=== PATIENT | male | born 1970 | race Two or more races ===

== ENCOUNTER 2022-09-05 08:41 | Inpatient (IN) | payer MEDICAID ==
[~2022-09-05] VITALS: Ht 165.1 cm; Wt 79.1 kg
[2022-09-05 09:16] LABS: Hemoglobin 13.7 g/dL (13.5-17.5); Mean Corpuscular Hgb Conc. 36.1 g/dL (32.0-36.0); Red Blood Cells 3.86 10^6/uL (4.5-5.90); White Blood Cell 23.4 10^3/uL (4.4-10.8)
[2022-09-05 09:18] LABS: Mean Corpuscular Hemoglobin 35.5 pg (28.0-32.0); Mean Corpuscular Volume 98.4 fL (80.0-100.0); Red Cell Distribution Width 15.3 % (11.8-14.3)
[2022-09-05 09:32] LABS: Albumin 2.4 g/dL (3.4-5.0); Calcium 7.4 mg/dL (8.5-10.1)
[2022-09-05 09:33] LABS: Basophils % (manual) 0 (0.0-2.0); Blast Cells 0; Eosinophils % (manual) 0 (0-7); Metamyelocytes % 0; Myelocytes % 0; Promyelocytes % 0; Reactive Lymphocytes 0
[2022-09-05 09:38] LABS: Bilirubin, Total 2.2 mg/dL (0.2-1.0); Total Protein 8.3 g/dL (6.4-8.2)
[2022-09-05 09:42] LABS: Potassium 2.9 mmol/L (3.5-5.1)
[2022-09-05] MEDS ORDERED: MAALOX PLUS or MAALOX 30 ML PO ONE (09:45)
[2022-09-05] MEDS ORDERED: LACTATED RINGER'S 1,000 ML IV ONE (09:45)
[2022-09-05] MEDS ORDERED: FAMOTIDINE (10MG/ML) 2ML VL IV ONE (09:45)
[2022-09-05] MEDS ORDERED: ONDANSETRON HCL 4 MG/2 ML VIAL IV ONE (09:45)
[2022-09-05] MEDS ORDERED: DICYCLOMINE HCL 10 MG CAP PO ONE (09:45)
[2022-09-05] MEDS ORDERED: BISMUTH SUBSALICYLATE 262MG/15ml ORAL Susp PO ONE (09:45)
[2022-09-05] MEDS ORDERED: SODIUM CHLORIDE 0.9% 1,000 ML IV ONE ×2 (10:00→11:45)
[2022-09-05] MEDS ORDERED: SOD CHL 0.9%/ KCL 40MEQ 1,000 ML IV ONE (10:00)
[2022-09-05] MEDS ORDERED: POTASSIUM CHL 20 Meq TABLET PO ONE (10:00)
[2022-09-05 10:01] LABS: Band Neutrophils % (manual) 2; Lymphocytes % (manual) 4 (10.0-50.0); Monocytes % (manual) 12 (0-12)
[2022-09-05 10:22] LABS: Urine Bacteria FEW /hpf (None Seen); Urine Blood 1+ /uL (Negative); Urine Mucus FEW (None Seen); Urine Specific Gravity 1.012 (1.001-1.035); Urine WBC 448 /hpf (0 - 3); Urine WBC Clumps PRESENT /hpf (None Seen)
[2022-09-05] MEDS ORDERED: VANCOMYCIN HCL 125MG/5ML ORAL SOL PO ONE (10:45)
[2022-09-05] MEDS ORDERED: HYDROcodone-ACET 5/325MG TAB PO ONE (11:00)
[2022-09-05] MEDS ORDERED: MAGNESIUM SULFATE 1GM/100ML 100 ML IV ONE (11:00)
[2022-09-05] MEDS ORDERED: cefTRIAXone 1GM/50ML D5W 50 ML IV ONE (11:15)
[2022-09-05] MEDS ORDERED: MORPHINE SULFATE INJ 2 MG/ml SYRG IV PRN (11:45)
[2022-09-05] MEDS ORDERED: ONDANSETRON HCL 4 MG/2 ML VIAL IV PRN (11:45)
[2022-09-05] MEDS ORDERED: ACETAMINOPHEN 325 MG TAB PO PRN (11:45)
[2022-09-05] MEDS: SODIUM CHLORIDE 0.9% 1,000 ML IV SCH ×2 (16:51→20:17)
[2022-09-05] MEDS: VANCOMYCIN HCL 125MG/5ML ORAL SOL PO SCH ×3 (17:22→22:00)
[2022-09-06] MEDS: SODIUM CHLORIDE 0.9% 1,000 ML IV SCH ×4 (04:25→21:04)
[2022-09-06 06:35] LABS: Eosinophils # (auto) 0 10 ^3/uL (0-0.8); Hemoglobin 12.8 g/dL (13.5-17.5); Lymphocytes # (auto) 0.9 10 ^3/uL (0.4-5.4); Monocytes # (auto) 1.8 10 ^3/uL (0-1.3); Neutrophils # (auto) 17.9 10 ^3/uL (1.6-8.6); White Blood Cell 20.6 10^3/uL (4.4-10.8)
[2022-09-06 06:38] LABS: Basophils # (auto) 0.1 10 ^3/uL (0-0.2); Basophils % (auto) 0.3 % (0.0-2.0); Hematocrit 35.9 % (41.0-53.0); Lymphocytes % (auto) 4.3 % (10.0-50.0); Mean Corpuscular Hemoglobin 35.7 pg (28.0-32.0); Mean Corpuscular Hgb Conc. 35.7 g/dL (32.0-36.0); Mean Corpuscular Volume 99.8 fL (80.0-100.0); Monocytes % (auto) 8.8 % (0.0-12.0); Neutrophils % (auto) 86.6 % (37.0-80.0); Red Cell Distribution Width 15.3 % (11.8-14.3)
[2022-09-06 06:55] LABS: Albumin 2.1 g/dL (3.4-5.0); Calcium 7.1 mg/dL (8.5-10.1); Potassium 3.2 mmol/L (3.5-5.1)
[2022-09-06] MEDS: VANCOMYCIN HCL 125MG/5ML ORAL SOL PO SCH ×4 (06:59→21:04)
[2022-09-06 07:00] LABS: BUN/Creatinine Ratio 14.3 (10.0-20.0); Bilirubin, Total 1.4 mg/dL (0.2-1.0); Total Protein 7.6 g/dL (6.4-8.2)
[2022-09-06] MEDS: cefTRIAXone 1GM/50ML D5W 50 ML IV SCH (10:18)
[2022-09-06] MEDS: ENOXAPARIN SOD 40 MG/0.4 ML SYRINGE SC SCH (10:46)
[2022-09-06] MEDS: PANTOPRAZOLE 40 MG/10 ML VIAL INJ IV SCH (11:27)
[2022-09-06 17:00] VITALS: BP 124/75
[2022-09-06] MEDS ORDERED: metroNIDAZOLE 500MG/100ML 100 ML IV ONE (18:15)
[2022-09-06 21:55] VITALS: BP 117/69
[2022-09-06 23:54] VITALS: BP 132/74
[2022-09-07] MEDS: metroNIDAZOLE 500MG/100ML 100 ML IV SCH ×3 (03:19→18:29)
[2022-09-07 04:48] VITALS: BP 110/73
[2022-09-07] MEDS: SODIUM CHLORIDE 0.9% 1,000 ML IV SCH (05:58)
[2022-09-07] MEDS: VANCOMYCIN HCL 125MG/5ML ORAL SOL PO SCH ×3 (05:58→18:29)
[2022-09-07 06:28] LABS: Basophils # (auto) 0.1 10 ^3/uL (0-0.2); Basophils % (auto) 0.5 % (0.0-2.0); Eosinophils # (auto) 0 10 ^3/uL (0-0.8); Eosinophils % (auto) 0.1 % (0.0-7.0); Hematocrit 32.4 % (41.0-53.0); Hemoglobin 11.3 g/dL (13.5-17.5); Lymphocytes # (auto) 0.8 10 ^3/uL (0.4-5.4); Lymphocytes % (auto) 5.3 % (10.0-50.0); Mean Corpuscular Hemoglobin 34.5 pg (28.0-32.0); Mean Corpuscular Hgb Conc. 34.8 g/dL (32.0-36.0); Mean Corpuscular Volume 99.3 fL (80.0-100.0); Monocytes % (auto) 12.9 % (0.0-12.0); Neutrophils # (auto) 12.6 10 ^3/uL (1.6-8.6); Neutrophils % (auto) 81.2 % (37.0-80.0); Red Blood Cells 3.26 10^6/uL (4.5-5.90); Red Cell Distribution Width 15.6 % (11.8-14.3); White Blood Cell 15.6 10^3/uL (4.4-10.8)
[2022-09-07 06:50] LABS: BUN/Creatinine Ratio 13.9 (10.0-20.0); Calcium 7.4 mg/dL (8.5-10.1)
[2022-09-07 07:54] LABS: Potassium 2.6 mmol/L (3.5-5.1)
[2022-09-07 08:00] VITALS: BP 100/60
[2022-09-07] MEDS: cefTRIAXone 1GM/50ML D5W 50 ML IV SCH (09:42)
[2022-09-07] MEDS ORDERED: POTASSIUM EFFERVESENT TAB 25 MEQ GT ONE (10:15)
[2022-09-07] MEDS: POTASSIUM CHL 20MEQ/100ML 100 ML IV SCH ×4 (10:45→15:33)
[2022-09-07] MEDS: ENOXAPARIN SOD 40 MG/0.4 ML SYRINGE SC SCH (10:46)
[2022-09-07] MEDS: PANTOPRAZOLE 40 MG/10 ML VIAL INJ IV SCH (10:46)
[2022-09-07 12:00] VITALS: BP 107/64
[2022-09-07] MEDS: SODIUM BICARBONATE 50ML VIAL 50 ML in SOD CHL 0.45% 1,000 ML IV SCH ×3 (13:19→21:50)
[2022-09-07 16:00] VITALS: BP 116/77
[2022-09-07 22:00] VITALS: BP 122/79
[2022-09-08] MEDS: metroNIDAZOLE 500MG/100ML 100 ML IV SCH ×3 (01:47→17:55)
[2022-09-08 05:00] VITALS: BP 140/82
[2022-09-08 06:16] LABS: Basophils # (auto) 0 10 ^3/uL (0-0.2); Basophils % (auto) 0.3 % (0.0-2.0); Eosinophils # (auto) 0.1 10 ^3/uL (0-0.8); Eosinophils % (auto) 0.4 % (0.0-7.0); Hematocrit 35.4 % (41.0-53.0); Hemoglobin 12.1 g/dL (13.5-17.5); Lymphocytes # (auto) 1.1 10 ^3/uL (0.4-5.4); Lymphocytes % (auto) 8.3 % (10.0-50.0); Mean Corpuscular Hemoglobin 34.5 pg (28.0-32.0); Mean Corpuscular Hgb Conc. 34.2 g/dL (32.0-36.0); Mean Corpuscular Volume 100.9 fL (80.0-100.0); Monocytes # (auto) 1.9 10 ^3/uL (0-1.3); Monocytes % (auto) 14.2 % (0.0-12.0); Neutrophils # (auto) 10.5 10 ^3/uL (1.6-8.6); Neutrophils % (auto) 76.8 % (37.0-80.0); Red Blood Cells 3.51 10^6/uL (4.5-5.90); Red Cell Distribution Width 16.1 % (11.8-14.3); White Blood Cell 13.7 10^3/uL (4.4-10.8)
[2022-09-08] MEDS: SODIUM BICARBONATE 50ML VIAL 50 ML in SOD CHL 0.45% 1,000 ML IV SCH ×2 (06:17→21:15)
[2022-09-08 06:29] LABS: BUN/Creatinine Ratio 9.3 (10.0-20.0); Calcium 7.6 mg/dL (8.5-10.1); Potassium 3.3 mmol/L (3.5-5.1)
[2022-09-08 09:00] VITALS: BP 132/87
[2022-09-08] MEDS: PANTOPRAZOLE 40 MG/10 ML VIAL INJ IV SCH (09:02)
[2022-09-08] MEDS: cefTRIAXone 1GM/50ML D5W 50 ML IV SCH (09:03)
[2022-09-08] MEDS: ENOXAPARIN SOD 40 MG/0.4 ML SYRINGE SC SCH (09:03)
[2022-09-08] MEDS ORDERED: POTASSIUM EFFERVESENT TAB 25 MEQ GT ONE (09:30)
[2022-09-08] MEDS ORDERED: POTASSIUM EFFERVESENT TAB 25 MEQ PO ONE (12:15)
[2022-09-08 13:00] VITALS: BP 137/90
[2022-09-08] MEDS: MAGNESIUM SULFATE 1GM/100ML 100 ML IV SCH ×2 (15:10→16:33)
[2022-09-08 16:42] VITALS: BP 140/84
[2022-09-08 20:00] VITALS: BP 131/86
[2022-09-08 22:00] VITALS: BP 131/86
[2022-09-09] MEDS: metroNIDAZOLE 500MG/100ML 100 ML IV SCH ×2 (01:54→12:01)
[2022-09-09 05:13] VITALS: BP 124/86
[2022-09-09] MEDS: SODIUM BICARBONATE 50ML VIAL 50 ML in SOD CHL 0.45% 1,000 ML IV SCH ×3 (06:00→23:30)
[2022-09-09 06:53] LABS: Basophils # (auto) 0.1 10 ^3/uL (0-0.2); Basophils % (auto) 0.6 % (0.0-2.0); Eosinophils # (auto) 0.1 10 ^3/uL (0-0.8); Eosinophils % (auto) 0.7 % (0.0-7.0); Hematocrit 32.8 % (41.0-53.0); Hemoglobin 11.3 g/dL (13.5-17.5); Lymphocytes # (auto) 1.1 10 ^3/uL (0.4-5.4); Lymphocytes % (auto) 9.1 % (10.0-50.0); Mean Corpuscular Hemoglobin 34.4 pg (28.0-32.0); Mean Corpuscular Hgb Conc. 34.3 g/dL (32.0-36.0); Mean Corpuscular Volume 100.1 fL (80.0-100.0); Monocytes % (auto) 16.5 % (0.0-12.0); Neutrophils # (auto) 8.9 10 ^3/uL (1.6-8.6); Neutrophils % (auto) 73.1 % (37.0-80.0); Red Blood Cells 3.28 10^6/uL (4.5-5.90); White Blood Cell 12.2 10^3/uL (4.4-10.8)
[2022-09-09 07:06] LABS: BUN/Creatinine Ratio 5.1 (10.0-20.0); Calcium 7.3 mg/dL (8.5-10.1); Potassium 3.9 mmol/L (3.5-5.1)
[2022-09-09 07:12] LABS: Phosphorus 0.8 mg/dL (2.5-4.90)
[2022-09-09 08:30] VITALS: BP 119/82
[2022-09-09] MEDS: cefTRIAXone 1GM/50ML D5W 50 ML IV SCH (09:09)
[2022-09-09] MEDS ORDERED: METR500T PO (09:45)
[2022-09-09] MEDS ORDERED: POTASSIUM PHOSPHATE 44 MEQ in D5W 5% 250 ML IV ONE (10:45)
[2022-09-09] MEDS: PANTOPRAZOLE 40 MG/10 ML VIAL INJ IV SCH (12:01)
[2022-09-09] MEDS: ENOXAPARIN SOD 40 MG/0.4 ML SYRINGE SC SCH (12:01)
[2022-09-09 13:24] VITALS: BP 128/90
[2022-09-09 16:54] VITALS: BP 124/84
[2022-09-09 22:00] VITALS: BP 117/61
[2022-09-10] MEDS: metroNIDAZOLE 500MG/100ML 100 ML IV SCH ×3 (02:00→10:00)
[2022-09-10 05:00] VITALS: BP 136/87
[2022-09-10 06:45] LABS: Magnesium 1.9 mg/dL (1.6-2.6); Phosphorus 2.5 mg/dL (2.5-4.90)
[2022-09-10 08:46] VITALS: BP 126/87
[2022-09-10] MEDS: cefTRIAXone 1GM/50ML D5W 50 ML IV SCH (09:00)
[2022-09-10] MEDS: ENOXAPARIN SOD 40 MG/0.4 ML SYRINGE SC SCH (10:00)
[2022-09-10] MEDS: PANTOPRAZOLE 40 MG/10 ML VIAL INJ IV SCH (10:00)
[2022-09-10 10:17] VITALS: BP 126/87
[2022-09-10] MEDS: SODIUM BICARBONATE 50ML VIAL 50 ML in SOD CHL 0.45% 1,000 ML IV SCH (11:43)
== END 2022-09-10 12:51 | disposition home or self-care (01) | DRG 249 ==
LOC: ER 08:41 → OVERFLOW 11:43 → CENTRAL 09-06 14:13
PROVIDERS: ADMIT Nurse Practitioner Family; ATTEND Internal Medicine Pulmonary Disease
DX: K52.9 Noninfective gastroenteritis and colitis, unspecified (principal); N17.0 Acute kidney failure with tubular necrosis; E87.20 Acidosis, unspecified; D69.6 Thrombocytopenia, unspecified; E83.39 Other disorders of phosphorus metabolism; E86.0 Dehydration; N30.00 Acute cystitis without hematuria; B96.20 Unspecified Escherichia coli [E. coli] as the cause of diseases classified elsewhere; E83.42 Hypomagnesemia; E87.6 Hypokalemia; N18.9 Chronic kidney disease, unspecified; Z90.49 Acquired absence of other specified parts of digestive tract; Z82.49 Family history of ischemic heart disease and other diseases of the circulatory system; Z83.3 Family history of diabetes mellitus; Z82.3 Family history of stroke
CPT/HCPCS: 36415; 74176; 76705; 80048; 80053; 81001; 83690; 83735; 83986; 84100; 85007; 85025; 85027; 85048; 87045; 87086; 87088; 87177; 87186; 87427; 87493; 96365; 96366; 96367; 96372; 96375; C9113; G0378; J0696; J2405; J3480; J3490; J7060

== ENCOUNTER 2023-03-05 15:29 | Emergency (ER) | payer MEDICAID ==
[~2023-03-05] VITALS: Ht 170.2 cm; Wt 78.0 kg
[~2023-03-05 15:29] MED LIST: METR500T PO
[2023-03-05 16:09] VITALS: BP 133/89; PULSE 105; RESP 18; TEMP 98.6; O2SAT 96
[2023-03-05 16:24] LABS: Urine Bacteria MOD /hpf (None Seen); Urine Blood 2+ /uL (Negative); Urine Clarity HAZY (Clear); Urine Color Orange (Yellow); Urine Hyaline Cast FEW /lpf (0 - 2); Urine Mucus FEW (None Seen); Urine Protein, UAD 1+ (Negative); Urine Specific Gravity 1.018 (1.001-1.035); Urine Urobilinogen >12.0 mg/dL (Negative); Urine WBC 358 /hpf (0 - 3); Urine WBC Clumps PRESENT /hpf (None Seen); Urine pH 6.5 (5.0-8.0)
[2023-03-05] MEDS ORDERED: cefTRIAXone SOD 1,000 MG VL IM ONE (16:30)
[2023-03-05] MEDS ORDERED: ACET-1080 PO (16:36)
[2023-03-05] MEDS ORDERED: CIPR-173 PO (16:36)
== END 2023-03-05 16:46 | disposition home or self-care (01) ==
LOC: ER 15:29
DX: N39.0 Urinary tract infection, site not specified (principal); Z90.49 Acquired absence of other specified parts of digestive tract; Z79.2 Long term (current) use of antibiotics; Z79.899 Other long term (current) drug therapy
CPT/HCPCS: 81001; 96372; 99283; J0696

== ENCOUNTER 2023-03-22 09:13 | Emergency (ER) | payer MEDICAID ==
[~2023-03-22] VITALS: Ht 167.6 cm; Wt 74.9 kg
[~2023-03-22 09:13] MED LIST changes: +ACET-1080 PO; +CIPR-173 PO
[2023-03-22 10:14] LABS: Urine Bacteria FEW /hpf (None Seen); Urine Blood Negative /uL (Negative); Urine Clarity Clear (Clear); Urine Hyaline Cast FEW /lpf (0 - 2); Urine Mucus FEW (None Seen); Urine Protein, UAD 1+ (Negative); Urine Specific Gravity 1.026 (1.001-1.035); Urine WBC 5 /hpf (0 - 3)
[2023-03-22 10:20] LABS: Urine Color BROWN (Yellow)
[2023-03-22] MEDS ORDERED: cefTRIAXone SOD 1,000 MG VL IM ONE (11:15)
[2023-03-22] MEDS ORDERED: MELO7.5T7 PO (11:18)
[2023-03-22] MEDS ORDERED: CEFP100T6 PO (11:18)
[2023-03-22] MEDS ORDERED: ACET500T58 PO (11:18)
[2023-03-22 11:20] VITALS: PULSE 89; RESP 16; O2SAT 100
[2023-03-22] MEDS ORDERED: KETOROLAC TROMETH 30 MG/ML 1ML VIAL IM ONE (11:45)
[2023-03-22 12:26] VITALS: BP 116/79; PULSE 85; RESP 16; TEMP 98.3; O2SAT 95
== END 2023-03-22 12:30 | disposition home or self-care (01) ==
LOC: ER 09:13
DX: M23.91 Unspecified internal derangement of right knee (principal); N30.90 Cystitis, unspecified without hematuria; Z90.49 Acquired absence of other specified parts of digestive tract; Z79.2 Long term (current) use of antibiotics; Z79.899 Other long term (current) drug therapy
CPT/HCPCS: 73562; 81001; 96372; 99284; J0696; J1885

== ENCOUNTER 2025-01-23 10:27 | Inpatient (IN) | payer MEDICAID ==
[~2025-01-23] VITALS: Ht 167.6 cm; Wt 75.1 kg
[~2025-01-23 10:27] MED LIST changes: +ACET500T58 PO; -CIPR-173 PO; +CIPR500T4 PO; +METR-344 PO; -METR500T PO
--- NOTE | 2025-01-23 11:38 | ED.PDOC ---
History of Present Illness HPI Comments 54 year old male presents to the ED with a chief complaint of confusion onset 2 weeks. Patient states he has been experiencing confusion for the past 2 weeks as well as dizziness and generalized weakness. Patient states he was told by a spiritism he as witchcraft done on him. This morning he went to sleep thinking it was night time. Denies any PMHx as well as chest pain, shortness of breath, fall, injury, head injury, nausea, vomiting, diarrhea, abdominal pain, dysuria, hematuria, headache. No other symptoms or modifying factors present at this time. Chief Complaint: Dizziness Time Seen by MD: 11:20 Primary Care Provider: UNKNOWN Reviewed Notes: Medications, Allergies Allergies: Coded Allergies: NO KNOWN ALLERGIES (Unverified , 09/05/22) Home Meds Active Scripts Metronidazole (Flagyl) 500 Mg Tab, 1 TAB PO TID, #30 TAB Prov:TONA TIDWELL MD 07/05/23 Ciprofloxacin Hcl (Ciprofloxacin Hcl) 500 Mg Tab, 1 TAB PO TID for 7 Days, #21 TAB Prov:TONA TIDWELL MD 07/05/23 Acetaminophen (Acetaminophen) 500 Mg Tab, 500 MG PO TIDPRN PRN for 30 Days, #90 TAB 0 Refills Prov:RACHELLE SWEENEY NP 03/22/23 Acetaminophen (Tylenol 8 Hour Arthritis) 650 Mg Tab, 650 MG PO TID, #30 TAB Prov:NANNETTE HARRIS 03/05/23 Information Source: Patient Mode of Arrival: Ambulatory Severity: Moderate Timing: Weeks Duration: Since onset Prehospital treatment: None Past Medical History PAST MEDICAL HISTORY: Denies Surgical History: Appendectomy Family History Family History: Reviewed,noncontributory to illness Social History Smoker: Non-Smoker Alcohol: Denies ETOH Use Drugs: Denies Drug Use Lives In: Home Constitutional: reports: weakness; denies: chills, diaphoresis, fatigue, fever, malaise, sweats, others EENTM: denies: blurred vision, double vision, ear bleeding, ear discharge, ear drainage, ear pain, ear ringing, eye pain, eye redness, hearing loss, mouth pain, mouth swelling, nasal discharge, nose bleeding, nose congestion, nose pain, photophobia, tearing, throat pain, throat swelling, voice changes, others Respiratory: denies: cough, hemoptysis, orthopnea, SOB at rest, shortness of breath, SOB with excertion, stridor, wheezing, others Cardiovascular: denies: chest pain, dizzy spells, diaphoresis, Dyspnea on exertion, edema, irregular heart beat, left arm pain, lightheadedness, palpitations, PND, syncope, others Gastrointestinal: denies: abdomen distended, abdominal pain, blood streaked bowels, constipated, diarrhea, dysphagia, difficulty swallowing, hematemesis, melena, nausea, poor appetite, poor fluid intake, rectal bleeding, rectal pain, vomiting, others Genitourinary: denies: burning, dysuria, flank pain, frequency, hematuria, incontinence, penile discharge, penile sore, pain, testicle pain, testicle swelling, urgency, others Neurological: reports: dizziness, weakness, others (confusion); denies: fainting, headache, left sided numbness, left sided weakness, numbness, paresthesia, pre-existing deficit, right sided numbness, right sided weakness, seizure, speech problems, tingling, tremors Musculoskeletal: denies: back pain, gout, joint pain, joint swelling, muscle pain, muscle stiffness, neck pain, others Integumetry: denies: bruises, change in color, change in hair/nails, dryness, laceration, lesions, lumps, rash, wounds, others Allergic/Immunocompromised: denies: Difficulty Healing, Frequent Infections, Hives, Itching, others Hematologic/Lymphatic: denies: anemia, blood clots, easy bleeding, easy bruising, swollen glands, others Endocrine: denies: excessive hunger, excessive sweating, excessive thirst, excessive urination, flushing, intolerance to cold, intolerance to heat, unexplained weight gain, unexplained weight loss, others Psychiatric: denies: anxiety, bipolar disorder, depression, hopeless, panic disorder, schizophrenia, sleepless, suicidal, others All Other Systems: Reviewed and Negative Physical Exam General Appearance: Normal HEENT: Normal ENT Inspection, Pharynx Normal, TMs Normal Neck: Full Range of Motion, Non-Tender, Normal, Normal Inspection Respiratory: Chest Non-Tender, Lungs Clear, No Accessory Muscle Use, No Respiratory Distress, Normal Breath Sounds Cardiovascular: No Edema, No JVD, No Murmur, No Gallop, Normal Peripheral Pulses, Regular Rate/Rhythm Breast Exam: Deferred Gastrointestinal: No Organomegaly, Non Tender, No Pulsatile Mass, Normal Bowel Sounds, Soft Genitalia: Deferred Pelvic: Deferred Rectal: Deferred Extremities: No calf tenderness, Normal capillary refill, Normal inspection, Normal range of motion, Non-tender, No pedal edema Musculoskeletal : Apperance: Normal Neurologic: Alert, pearl fisherman II-XII nml as Tested, No Motor Deficits, Normal Affect, Normal Mood, No Sensory Deficits Cerebellar Function: Normal Reflexes: Normal Skin: Dry, Normal Color, Warm Lymphatic: No Adenopathy Was a procedure done? Was a procedure done?: No Differential Dx Considerations may include: acs, cva, viral syndrome, TIA, electrolyte abnormality X-Ray, Labs, Meds, VS Vital Signs Date Time Temp Pulse Resp B/P (MAP) Pulse Ox O2 Delivery O2 Flow Rate FiO2 01/23/25 12:19 Room Air* 0 21 01/23/25 12:19 102 18 133/84 (100) 99 01/23/25 10:40 106 01/23/25 10:32 98.2 109 18 143/81 95 98.2 Lab Test 01/23/25 13:02 01/23/25 12:35 01/23/25 11:54 Range/Units Troponin I High Sensitivity 11 11 </=54 ng/L Urine Color Dark-orange Yellow Urine Clarity Turbid H Clear Urine pH 6.0 5.0-9.0 Urine Specific [place] 1.031 1.001-1.035 Urine Protein 2+ H Negative Urine Ketones Trace Negative Urine Blood 1+ H Negative /uL Urine Nitrite Negative Negative Urine Bilirubin Positive Negative Urine Urobilinogen 12 H Negative mg/dL Urine Leukocyte Esterase Negative Negative /uL Urine RBC 4 0 - 3 /hpf Urine Microscopic WBC 4 H 0-3 /HPF Urine Squamous Epithelial Cells Few <5 /hpf Urine Bacteria Few H None Seen /hpf Urine Mucus Few None Seen Urine Glucose Trace Normal mg/dL White Blood Count 9.2 4.4-10.8 10^3/uL Red Blood Count 3.73 L 4.5-5.90 10^6/uL Hemoglobin 13.7 13.5-17.5 g/dL Hematocrit 39.7 L 41.0-53.0 % Mean Corpuscular Volume 106.4 H 80.0-100.0 fL Mean Corpuscular Hemoglobin 36.7 H 28.0-32.0 pg Mean Corpuscular Hemoglobin Concent 34.5 32.0-36.0 g/dL Red Cell Distribution Width 16.1 H 11.8-14.3 % Platelet Count 29 L 140-450 10^3/uL Mean Platelet Volume 8.0 6.9-10.8 fL Neutrophils (%) (Auto) 82.4 H 37.0-80.0 % Lymphocytes (%) (Auto) 10.0 10.0-50.0 % Monocytes (%) (Auto) 7.2 0.0-12.0 % Eosinophils (%) (Auto) 0.1 0.0-7.0 % Basophils (%) (Auto) 0.3 0.0-2.0 % Neutrophils # (Auto) 7.6 1.6-8.6 10 ^3/uL Lymphocytes # (Auto) 0.9 0.4-5.4 10 ^3/uL Monocytes # (Auto) 0.7 0-1.3 10 ^3/uL Eosinophils # (Auto) 0 0-0.8 10 ^3/uL Basophils # (Auto) 0 0-0.2 10 ^3/uL Nucleated Red Blood Cells 0.1 % Sodium Level 131 L 136-145 mmol/L Potassium Level 3.3 L 3.5-5.1 mmol/L Chloride Level 91 L 98-107 mmol/L Carbon Dioxide Level 24 20-31 mmol/L Anion Gap 16 H 5-15 Blood Urea Nitrogen 9 9-23 mg/dL Creatinine 0.98 0.700-1.30 mg/dL Glomerular Filtration Rate Calc 92 >90 mL/min BUN/Creatinine Ratio 9.2 L 10.0-20.0 Serum Glucose 109 H 74-106 mg/dL Calcium Level 8.4 L 8.7-10.4 mg/dL [place] [address] Ph: [phone] DIAGNOSTIC IMAGING Diagnostic Imaging Report : [id number] Signed PATIENT: LIZ MONTOYAOACCT: [id number] UNIT: [id number] : 1970 LOC: ER ROOM / BED: / AGE / SEX: 54 / M ADM STATUS: REG ER SERVICE 1136 ORDERING PHYSICIAN: GABRIEL RIVERA MD PROCEDURE(s): HWOCT - HEAD WITHOUT CONTRAST REASON: ams ORDER NUMBER(s): [id number], ACCESSION NUMBER(s): [id number] EXAM: CT HEAD WITHOUT CONTRAST HISTORY: ams COMPARISON: None TECHNIQUE: Noncontrast axial CT images of the head were performed. Sagittal and coronal reformatted images were obtained. This CT exam was performed using 1 or more of the following dose reduction techniques: Automated exposure control, adjustment of the mA and/or kv according to patient size, or the use of iterative reconstruction techniques. Radiation Dose: CTDI volume is 52.67 mGy. Dose-length product is 1.71 mGy*cm FINDINGS: No intracranial hemorrhage, mass, midline shift, hydrocephalus, or evidence of acute large vessel infarct. There is mucosal thickening throughout the paranasal sinuses with sparing of the left frontal sinus. The bilateral mastoid air cells and middle ear spaces are clear. No cranial fracture or scalp edema. IMPRESSION: 1. No acute intracranial process. 2. Pansinus disease sparing the left frontal sinus. ATED BY: GAVIN STACK MD DICTATED DATE/TIME: 01/23/251212 SIGNED BY: GAVIN STACK MD SIGNED DATE/TIME: 01/23/251212 CC: [place] [id number] Ph: [phone] DIAGNOSTIC IMAGING Diagnostic Imaging Report : [id number] Signed PATIENT: LIZ MONTOYAOACCT: [id number] UNIT: [id number] : 1970 LOC: ER ROOM / BED: / AGE / SEX: 54 / M ADM STATUS: REG ER SERVICE 1136 ORDERING PHYSICIAN: GABRIEL RIVERA MD PROCEDURE(s): CXRP - CHEST PORTABLE REASON: [facility] ORDER NUMBER(s): [id number], ACCESSION NUMBER(s): [id number] CHEST RADIOGRAPH Indication: ams Technique: Single frontal view of the chest was obtained Comparison: None FINDINGS: Lines and Tubes: None Lungs: No focal consolidation. Pleura: No effusion. No pneumothorax. Cardiomediastinal contours: Unremarkable Bones: No acute osseous abnormality. IMPRESSION: 1. No acute cardiopulmonary disease. ATED BY: ALICIA SEWELL Jr., DO DICTATED DATE/TIME: 01/23/25 1200 SIGNED BY: ALICIA SEWELL Jr., SIGNED DATE/TIME: 01/23/251199 CC: Time of 1ST Reevaluation: 11:50 Reevaluation 1ST: Unchanged Patient Education/Counseling: Diagnosis, Treatment, Prognosis Family Education/Counseling: No Family Present SEPSIS Sepsis Screen Date sepsis recognized/suspect: Jan 23, 2025 Time Sepsis recognized/suspect: 1031 Recent Procedure: No On Antibiotic Therapy: No Respiratory Rate >20: No Heart Rate >90: Yes Temp<36 C (96.8 F) or >38.3 C: No SBP <90 or MAP <65 mmHG: No New Acute Mental Status Change: No Is the patient on CPAP, BIPAP,: No Physician Orders Electrocardigram (01/23/25 10:48) Chest Portable (01/23/25 11:36) Head Without Contrast (01/23/25 11:36) Troponin-I Hs (01/23/25 14:36) Vital Signs Date Time Temp Pulse Resp B/P (MAP) Pulse Ox O2 Delivery O2 Flow Rate FiO2 01/23/25 12:19 Room Air* 0 21 01/23/25 12:19 102 18 133/84 (100) 99 01/23/25 10:40 106 01/23/25 10:32 98.2 109 18 143/81 95 98.2 Laboratory Tests Test 01/23/25 11:54 White Blood Count 9.2 10^3/uL (4.4-10.8) Departure 1 Departure Time of Disposition: 14:02 (Patient with altered mental status concerning for possible TIA versus electrolyte him out of the car we will admit patient for further workup and expert consultation) Impression: Primary Impression: Acute metabolic encephalopathy Disposition: ADMITTED INPATIENT Admit to: Med Surg Condition: Serious Critical Care Note Critical Care Time?: Yes Critical care comment: Concern for CVA or TIA Authorized and Performed by: Gabriel Rivera MD Total critical care time: Approximately 37 minutes Due to a high probability of clinically significant, life threatening deterioration, the patient required my highest level of preparedness to intervene emergently and I personally spent this critical care time directly and personally managing the patient. This critical care time included obtaining a history; examining the patient; pulse oximetry; ordering and review of studies; arranging urgent treatment with development of a management plan; evaluation of patient's response to treatment; frequent reassessment; and, discussions with other providers. This critical care time was performed to assess and manage the high probability of imminent, life-threatening deterioration that could result in multi-organ failure. It was exclusive of separately billable procedures and treating other patients and teaching time. Please see my other sections and the rest of the note for further information on patient assessment and treatment. Stability Stability form required: No I personally scribed for GABRIEL RIVERA MD ([email or web address]) on 01/23/25 at 11:38. Electronically submitted by Rosa Dow ([email or web address]). I personally scribed for GABRIEL RIVERA MD ([email or web address]) on 01/23/25 at 12:30. Electronically submitted by Rosa Dow ([email or web address]). GABRIEL RIVERA MD Jan 23, 2025 11:38
--- NOTE | 2025-01-23 12:03 | DVH ---
CHEST RADIOGRAPH Indication: ams Technique: Single frontal view of the chest was obtained Comparison: None FINDINGS: Lines and Tubes: None Lungs: No focal consolidation. Pleura: No effusion. No pneumothorax. Cardiomediastinal contours: Unremarkable Bones: No acute osseous abnormality. IMPRESSION: 1. No acute cardiopulmonary disease.
[2025-01-23 12:13] LABS: Hematocrit 39.7 % (41.0-53.0); Hemoglobin 13.7 g/dL (13.5-17.5); Mean Corpuscular Hemoglobin 36.7 pg (28.0-32.0); Mean Corpuscular Volume 106.4 fL (80.0-100.0); Nucleated Red Blood Cells % 0.1 %
--- NOTE | 2025-01-23 12:15 | DVH ---
EXAM: CT HEAD WITHOUT CONTRAST HISTORY: ams COMPARISON: None TECHNIQUE: Noncontrast axial CT images of the head were performed. Sagittal and coronal reformatted i mages were obtained. This CT exam was performed using 1 or more of the following dose reduction techn iques: Automated exposure control, adjustment of the mA and/or kv according to patient size, or the u se of iterative reconstruction techniques. Radiation Dose: CTDI volume is 52.67 mGy. Dose-length product is 1.71 mGy*cm FINDINGS: No intracranial hemorrhage, mass, midline shift, hydrocephalus, or evidence of acute large vessel inf arct. There is mucosal thickening throughout the paranasal sinuses with sparing of the left frontal s inus. The bilateral mastoid air cells and middle ear spaces are clear. No cranial fracture or scalp e marianne. IMPRESSION: 1. No acute intracranial process. 2. Pansinus disease sparing the left frontal sinus.
[2025-01-23 12:18] LABS: Anion Gap 16 (5-15); Carbon Dioxide 24 mmol/L (20-31)
[2025-01-23 12:19] LABS: Calcium 8.4 mg/dL (8.7-10.4); Chloride 91 mmol/L (98-107); Potassium 3.3 mmol/L (3.5-5.1); Sodium 131 mmol/L (136-145)
[2025-01-23 12:25] LABS: Blood Urea Nitrogen 9 mg/dL (9-23); Glucose 109 mg/dL (74-106)
[2025-01-23 12:32] LABS: BUN/Creatinine Ratio 9.2 (10.0-20.0)
[2025-01-23 12:50] LABS: Urine Protein, UAD 2+ (Negative)
[2025-01-23 14:20] VITALS: PULSE 85; RESP 21; O2SAT 96
[2025-01-23 14:36] LABS: Albumin 3.6 g/dL (3.2-4.8)
[2025-01-23 14:39] LABS: Alanine Aminotransferase 79.0 U/L (7-40); Alkaline Phosphatase 416.0 U/L (46-116); Bilirubin, Direct 9.6 mg/dL (<0.3); Bilirubin, Total 14.6 mg/dL (0.2-1.0)
--- NOTE | 2025-01-23 14:39 | ECG ---
[facility] Test Date: 2025-01-23 Test Time: 10:40:07 Pat Name: ALESSIA BENZ Department: ED Room: 0240T Gender: M Aemt: DR DAVIDSONB: 1970 Requested By: GABRIEL RIVERA Order Number: [id number] Reading MD: Jeremy Woodward Measurements Intervals [place] Rate: 106 P: 90 RI: 169 QRS: 77 QRSD: 84 T: 64 QT: 336 QTc: 447 Interpretive Statements Sinus tachycardia Electronically Signed On 01-27-2025 20:28:35 PDT by Jeremy Woodward Please click the below link to view image of tracing.
[2025-01-23 14:41] LABS: Total Protein 8.4 g/dL (5.7-8.2)
[2025-01-23] MEDS ORDERED: ONDANSETRON HCL 4 MG/2 ML VIAL IV PRN (16:00)
[2025-01-23] MEDS: SODIUM CHLORIDE 0.9% 1,000 ML IV SCH (16:07)
--- NOTE | 2025-01-23 16:11 | DVHHPRES ---
History of Present Illness Resident Creating Document: KATHI FAUSTIN RESIDENT History of Present Illness Mr. Cleaning, a 54-year-old male with previous history of chronic liver disease with ascites, status post paracentesis, 1 and half year ago at [place], psoriasis noncompliant with medicines, significant alcohol abuse presented to the ER with a friend due to altered mental status associated with nausea. He also has occasional dizziness, without losing any consciousness, confusion or blurry visions. The patient started having hallucinations of seeing through people, he believed all his symptoms started after going to the [place] for a prayer ceremony. The patient endorsed psoriasis all over his body. He denied any joint pain, active bleeding: melena, hematemesis, chest pain, shortness of breath, fever or chills, abdominal pain, vomiting or any other complaints. He denied any previous history of cancer, chemotherapeutic drugs, organ transplant or any other risk factors for TTP. On admission he had low platelets, hypokalemia which was repleted. Sodium was low could be chronic. He had no signs symptoms of sepsis. Past medical history: Chronic liver disease, psoriasis Past surgical history: Appendectomy 4 years ago, knee surgery 30 years ago. Family history: Noncontributory Social history: Smoking 10 pack years active smoking, heavy alcohol use, occasionally, last drink was 10 glasses at a [facility] 1 week ago. Home medicines: Vitamins Allergies: No known allergies The patient was seen and examined at bedside today. The patient endorsed jaundice, psoriasis, tremor on outstretched hand, dizziness and nausea. The patient was alert,oriented to time, place, person and conversive on the day of admission. The patient is admitted for further evaluation and management. Review of Systems Allergies: Coded Allergies: NO KNOWN ALLERGIES (Unverified , 09/05/22) Medications Current Medications Medications Dose Ordered Sig/Juhi Route Start Time Stop Time Status Last Admin Dose Admin Sodium Chloride 1,000 ml @ 60 mls/hr [id number] IV 01/23/25 16:00 01/23/25 16:07 60 MLS/HR Ondansetron HCl 4 mg Q4HP PRN IV 01/23/25 16:00 Thiamine HCl 100 mg DAILY PO 01/24/25 10:00 UNV Folic Acid 1 mg DAILY PO 01/24/25 10:00 UNV Multivitamins 1 tab DAILY PO 01/24/25 10:00 UNV Lorazepam 1 mg Q2HPRN PRN IV 01/23/25 16:00 UNV Chlordiazepoxide HCl 25 mg Q6HPRN PRN PO 01/23/25 16:00 UNV Lactulose 30 ml BID PO 01/23/25 22:00 UNV Exam Vital Signs Vital Signs Date Time Temp Pulse Resp B/P (MAP) Pulse Ox O2 Delivery O2 Flow Rate FiO2 01/23/25 14:20 98.1 85 21 141/84 (103) 96 98.1 01/23/25 14:20 Room Air* 0 21 Exam Pt is lying on bed General Appearance: Alert, Oriented X3, Cooperative, Not in acute distress HEENT: Atraumatic, Mucous membranes moist/pink, yellow conjunctivas Respiratory: Clear to auscultation, Normal air movement, No added sounds Cardiovascular: Regular rate, Normal S1, Normal S2, No murmurs Abdominal: Active bowel sounds, Soft, no distention, no tenderness Extremities: No edema, Normal pulses, No tenderness/swelling Skin: Psoriasis on scalp, extremities. Psych/Mental Status: Mental status NL, Mood NL Nurse was there as assembler aircraft power plant during examination Labs/Xrays Labs Test 01/23/25 14:54 01/23/25 14:35 01/23/25 12:35 01/23/25 11:54 Range/Units Troponin I High Sensitivity 10 </=54 ng/L Ammonia 54 H 11-32 umol/L Plasma/Serum Blood Alcohol 188.0 H <10 mg/dL Urine Color Dark-orange Yellow Urine Clarity Turbid H Clear Urine pH 6.0 5.0-9.0 Urine Specific [place] 1.031 1.001-1.035 Urine Protein 2+ H Negative Urine Ketones Trace Negative Urine Blood 1+ H Negative /uL Urine Nitrite Negative Negative Urine Bilirubin Positive Negative Urine Urobilinogen 12 H Negative mg/dL Urine Leukocyte Esterase Negative Negative /uL Urine RBC 4 0 - 3 /hpf Urine Microscopic WBC 4 H 0-3 /HPF Urine Squamous Epithelial Cells Few <5 /hpf Urine Bacteria Few H None Seen /hpf Urine Mucus Few None Seen Urine Glucose Trace Normal mg/dL White Blood Count 9.2 4.4-10.8 10^3/uL Red Blood Count 3.73 L 4.5-5.90 10^6/uL Hemoglobin 13.7 13.5-17.5 g/dL Hematocrit 39.7 L 41.0-53.0 % Mean Corpuscular Volume 106.4 H 80.0-100.0 fL Mean Corpuscular Hemoglobin 36.7 H 28.0-32.0 pg Mean Corpuscular Hemoglobin Concent 34.5 32.0-36.0 g/dL Red Cell Distribution Width 16.1 H 11.8-14.3 % Platelet Count 29 L 140-450 10^3/uL Mean Platelet Volume 8.0 6.9-10.8 fL Neutrophils (%) (Auto) 82.4 H 37.0-80.0 % Lymphocytes (%) (Auto) 10.0 10.0-50.0 % Monocytes (%) (Auto) 7.2 0.0-12.0 % Eosinophils (%) (Auto) 0.1 0.0-7.0 % Basophils (%) (Auto) 0.3 0.0-2.0 % Neutrophils # (Auto) 7.6 1.6-8.6 10 ^3/uL Lymphocytes # (Auto) 0.9 0.4-5.4 10 ^3/uL Monocytes # (Auto) 0.7 0-1.3 10 ^3/uL Eosinophils # (Auto) 0 0-0.8 10 ^3/uL Basophils # (Auto) 0 0-0.2 10 ^3/uL Nucleated Red Blood Cells 0.1 % Sodium Level 131 L 136-145 mmol/L Potassium Level 3.3 L 3.5-5.1 mmol/L Chloride Level 91 L 98-107 mmol/L Carbon Dioxide Level 24 20-31 mmol/L Anion Gap 16 H 5-15 Blood Urea Nitrogen 9 9-23 mg/dL Creatinine 0.98 0.700-1.30 mg/dL Glomerular Filtration Rate Calc 92 >90 mL/min BUN/Creatinine Ratio 9.2 L 10.0-20.0 Serum Glucose 109 H 74-106 mg/dL Calcium Level 8.4 L 8.7-10.4 mg/dL Total Bilirubin 14.6 H 0.2-1.0 mg/dL Direct Bilirubin 9.6 H <0.3 mg/dL Aspartate Amino Transferase (AST) 388 H 13-40 U/L Alanine Aminotransferase (ALT) 79 H 7-40 U/L Alkaline Phosphatase 416 H 46-116 U/L Total Protein 8.4 H 5.7-8.2 g/dL Albumin 3.6 3.2-4.8 g/dL SEPSIS Sepsis Screen Date sepsis recognized/suspect: Jan 23, 2025 Time Sepsis recognized/suspect: 1220 Recent Procedure: No On Antibiotic Therapy: No Respiratory Rate >20: No Heart Rate >90: Yes Temp<36 C (96.8 F) or >38.3 C: No SBP <90 or MAP <65 mmHG: No New Acute Mental Status Change: No Is the patient on CPAP, BIPAP,: No Physician Orders Chest Portable (01/23/25 11:36) Head Without Contrast (01/23/25 11:36) Admit (01/23/25 15:47) Allergies (01/23/25 15:47) Code Status (01/23/25 15:47) Sodium Chloride 0.9% (01/23/25 16:00) Oxygen Per Hour (01/23/25 15:47) Ondansetron Hcl (Zofran) (01/23/25 16:00) Complete Blood Count (01/24/25 04:00) Comprehensive Metabolic Panel (01/24/25 04:00) Clear Liq Diet (01/23/25 Dinner) Electric Meter Repairer For 24 Hours (01/23/25 15:47) Notify Of Changes From Base (01/23/25 15:47) Electrocardigram (01/23/25 15:47) Ct Ab Pel Wo Con-No Oral Or Iv (01/23/25 15:50) Lactate Dehydrogenase (01/23/25 15:50) Lactic Acid W/ Reflex Order (01/23/25 15:50) Orthostatic Vital Signs (01/23/25 15:50) Prothrombin Time W/ Inr (01/23/25 15:50) Urinalysis (01/23/25 15:50) Potassium Er Tablet (Klor-Con Tablet) (01/23/25 16:00) Drug Screen (01/23/25 15:55) Sodium Chloride 0.9% (01/23/25 16:00) Magnesium (01/23/25 15:55) Thiamine Tab (01/24/25 10:00) Folic Acid Tablet (01/24/25 10:00) Multiple Vitamin Tablet (Mvi Tab) (01/24/25 10:00) Thiamine Inj (01/23/25 16:00) Lorazepam 2mg/Ml Inj (Ativan Inj) (01/23/25 16:00) Etoh Withdrawal Assessment (01/23/25 15:55) Etoh Withdrawal Assessment NOW (01/23/25 15:55) Chlordiazepoxide Hcl Capsule (Librium Ca (01/23/25 16:00) Lactulose Oral (01/23/25 22:00) Lactulose Oral (01/23/25 16:00) Vital Signs Date Time Temp Pulse Resp B/P (MAP) Pulse Ox O2 Delivery O2 Flow Rate FiO2 01/23/25 14:20 98.1 85 21 141/84 (103) 96 98.1 01/23/25 14:20 85 21 96 Room Air* 0 21 01/23/25 12:19 Room Air* 0 21 01/23/25 12:19 102 18 133/84 (100) 99 01/23/25 10:40 106 01/23/25 10:32 98.2 109 18 143/81 95 98.2 Laboratory Tests Test 01/23/25 11:54 White Blood Count 9.2 10^3/uL (4.4-10.8) Medications Medications Dose Ordered Sig/Juhi Route Start Time Stop Time Status Last Admin Dose Admin Sodium Chloride 1,000 ml @ 60 mls/hr [id number] IV 01/23/25 16:00 01/23/25 16:07 60 MLS/HR Assessment/Plan Assessment/Plan Alcohol withdrawal Alcohol abuse Blood alcohol level 180s Counseling regarding cessation for more than 40 minutes Social service consult for providing resources to quit alcohol IV fluids Ondansetron for nausea CIWA score 5 CIWA protocol: Lorazepam, thiamine, folic acid vitamin B12 given Alcoholic liver disease with hyperbilirubinemia Transaminitis Thrombocytopenia, likely alcohol-induced Monitor labs and signs symptoms of active bleeding High LDH Pending Maddrey score due to INR and PT, PTT Considered steroid based on maddrey score results CT abdomen and pelvis ordered Gallbladder ultrasound ordered GI prophylaxis: Pantoprazole DVT prophylaxis: Lovenox on hold given thrombocytopenia Diet: Clear liquid, advance as tolerated Goals of care discussed with the patient for more than 27 minutes: Full code status Case discussed with Dr. Willett, patient and nurse. Plan discussed with: Patient, Other (RN) My Orders Orders - ROXIE,KATHI RESIDENT Procedure Category Date Status Time Admit ADMIT 01/23/25 Transmitted 15:47 Allergies DIAMOND 01/23/25 In Process 15:47 Code Status CODE 01/23/25 Transmitted 15:47 Sodium Chloride 0.9% PHA 01/23/25 In Process 16:00 Oxygen Per Hour RT 01/23/25 Transmitted 15:47 Ondansetron Hcl PHA 01/23/25 In Process (Zofran) 16:00 Complete Blood Count LAB 01/24/25 Verified 04:00 Comprehensive LAB 01/24/25 Verified Metabolic Panel 04:00 Clear Liq Diet DIET 01/23/25 Transmitted Dinner Electric Meter Repairer For DIAMOND 01/23/25 In Process 24 Hours 15:47 Notify Of Changes DIAMOND 01/23/25 In Process From Base 15:47 Electrocardigram EKG 01/23/25 Logged 15:47 Ct Ab Pel Wo Con-No CT 01/23/25 Logged Oral Or Iv 15:50 Lactate Dehydrogenase LAB 01/23/25 In Process 15:50 Lactic Acid W/ Reflex LAB 01/23/25 Logged Order 15:50 Orthostatic Vital ORDERS 01/23/25 Transmitted Signs 15:50 Prothrombin Time W/ LAB 01/23/25 In Process INR 15:50 Urinalysis LAB 01/23/25 Logged 15:50 Potassium Er Tablet PHA 01/23/25 Logged (Klor-Con Tablet) 16:00 Drug Screen LAB 01/23/25 Logged 15:55 Sodium Chloride 0.9% PHA 01/23/25 Logged 16:00 Magnesium LAB 01/23/25 Logged 15:55 Thiamine Tab PHA 01/24/25 Logged 10:00 Folic Acid Tablet PHA 01/24/25 Logged 10:00 Multiple Vitamin PHA 01/24/25 Logged Tablet (Mvi Tab) 10:00 Thiamine Inj PHA 01/23/25 Logged 16:00 Lorazepam 2mg/Ml Inj PHA 01/23/25 Logged (Ativan Inj) 16:00 Etoh Withdrawal DIAMOND 01/23/25 In Process Assessment 15:55 Etoh Withdrawal DIAMOND 01/23/25 In Process Assessment 15:55 Chlordiazepoxide Hcl PHA 01/23/25 Logged Capsule (Librium Ca 16:00 Lactulose Oral PHA 01/23/25 Logged 22:00 Lactulose Oral PHA 01/23/25 Logged 16:00 Date of Service: Jan 23, 2025 Billing Provider: VERO WILLETT MD Common Visit Codes: [id number] INP/OBS CARE (HIGH) Secondary Visit Codes: [id number] CARE PLAN 30 MINUTES KATHI FAUSTIN RESIDENT Jan 23, 2025 16:11 REYNALDO KIM RESIDENT Jan 24, 2025 16:15 VERO WILLETT MD Jan 27, 2025 20:54
[2025-01-23 16:18] LABS: INR 1.47 (0.9-1.15); Prothrombin Time 15.0 sec (9.3-11.8)
[2025-01-23] MEDS: LACTULOSE 20Gm/30ML SOLN PO ONE (16:27)
[2025-01-23] MEDS: POTASSIUM CHL 20 Meq TABLET PO ONE (16:27)
[2025-01-23] MEDS: THIAMINE 100mg/ml INJ (200mg/2ml VIAL) IV ONE (16:28)
[2025-01-23] MEDS: SODIUM CHLORIDE 0.9% 1,000 ML IVB ONE (16:28)
[2025-01-23 16:41] LABS: Amphetamine Screen, Urine Pos (NEGATIVE); Barbiturate Scree,Urine Neg (NEGATIVE); Benzodiazephine Screen, Urine Neg (NEGATIVE); Cannabinoid Screen, Urine Neg (NEGATIVE); Cocaine Screen, Urine Neg (NEGATIVE); Opiate Scree,Urine Neg (NEGATIVE); Phencyclidine Screen, Urine Neg (NEGATIVE)
--- NOTE | 2025-01-23 16:41 | DVH ---
CLINICAL HISTORY: Liver disease TECHNIQUE: CT of the abdomen and pelvis was performed without IV contrast. This exam was performed ac cording to our departmental dose optimization program. Up-to-date CT equipment and radiation dose red uction techniques are utilized as appropriate. CTDI 10 DLP 535 COMPARISON: CT CT AB PEL WO CON-NO ORAL OR IV on DOS: 07/02/23, CT CT AB PEL WO CON-NO ORAL OR IV on D OS: 09/05/22 FINDINGS: Abdomen/Pelvis: The spleen, pancreas, adrenal glands, kidneys, bladder, and prostate gland are grossly unremarkable. There is a moderate amount of sludge in the gallbladder. The liver is nodular in contour. There are diffuse hypodense lesions throughout the liver. There is a recanalized umbilical vein. The abdominal aorta is normal in course and caliber. There are no significant atherosclerotic calcifi cations. There is no free intraperitoneal air. Trace ascites. There is no enlarged abdominal pelvic lymph node. There is no bowel wall thickening or dilatation. The appendix is not seen, possibly surgically absent . There is mild left colon diverticulosis. Other: The imaged lower thorax demonstrates patchy left lower lobe opacities. No acute osseous abnormality is evident. Impression: Throughout liver with interval hypodense lesions, which may represent masses or fatty infiltration. L iver MRI with and without IV contrast can better evaluate. Recanalized umbilical vein. Colonic diverticulosis. Left lower lobe infection.
[2025-01-23 17:40] LABS: Lactic Acid w/Reflex 3.6 mmol/L (0.4-2.0)
[2025-01-23 18:06] VITALS: BP 136/77; PULSE 104; PULSE 107; RESP 12; RESP 16; TEMP 97.7; O2SAT 95; O2SAT 99
[2025-01-23 20:00] VITALS: PULSE 102; PULSE 111; RESP 18; O2SAT 95
[2025-01-23 21:00] VITALS: BP 131/69; PULSE 102; RESP 18; TEMP 97.5; O2SAT 95
[2025-01-23] MEDS: LACTULOSE 20Gm/30ML SOLN PO SCH (21:04)
[2025-01-24] VITALS (8 sets, daily range): BP systolic 123–132; BP diastolic 74–89; PULSE 88–109; RESP 16–20; TEMP 97.4–99.1; O2SAT 95–99
[2025-01-24] MEDS: LORazepam 2MG/ML-1ML VIAL IV PRN (01:30)
[2025-01-24 06:21] LABS: Hematocrit 34.3 % (41.0-53.0); Hemoglobin 12.2 g/dL (13.5-17.5); Mean Corpuscular Hemoglobin 36.8 pg (28.0-32.0); Mean Corpuscular Volume 103.9 fL (80.0-100.0); Nucleated Red Blood Cells % 0.1 %
[2025-01-24 06:33] LABS: Anion Gap 14 (5-15); Carbon Dioxide 24 mmol/L (20-31); Potassium 3.8 mmol/L (3.5-5.1)
[2025-01-24 06:39] LABS: Alanine Aminotransferase 71 U/L (7-40); Albumin 3.0 g/dL (3.2-4.8); Alkaline Phosphatase 364 U/L (46-116); BUN/Creatinine Ratio 6.8 (10.0-20.0); Bilirubin, Total 13.7 mg/dL (0.2-1.0); Blood Urea Nitrogen < 5 mg/dL (9-23); Calcium 7.9 mg/dL (8.7-10.4); Chloride 97 mmol/L (98-107); Glucose 64 mg/dL (74-106); Sodium 135 mmol/L (136-145); Total Protein 7.1 g/dL (5.7-8.2)
[2025-01-24] MEDS: MULTIPLE VITAMIN TAB PO SCH (08:28)
[2025-01-24] MEDS: FOLIC ACID 1 MG TAB PO SCH (08:28)
[2025-01-24] MEDS: THIAMINE HCL 100 MG TAB PO SCH (08:28)
[2025-01-24] MEDS: predniSONE 20 MG TAB PO ONE (11:30)
[2025-01-24] MEDS: SODIUM CHLORIDE 0.9% 500 ML IV ONE (16:55)
--- NOTE | 2025-01-24 19:11 | DVHPNRES ---
Progress Note Date Seen: Jan 24, 2025 Resident Creating Document: KATHI FAUSTIN RESIDENT Medical Necessity Reason Pt with a Central, PICC or Fol: No Subjective Review of Systems Mr. Cleaning, a 54-year-old male with previous history of chronic liver disease with ascites, status post paracentesis, 1 and half year ago at [place], psoriasis noncompliant with medicines, significant alcohol abuse presented to the ER with a friend due to altered mental status associated with nausea. He also has occasional dizziness, without losing any consciousness, confusion or blurry visions. The patient started having hallucinations of seeing through people, he believed all his symptoms started after going to the [place] for a [place] ceremony. The patient endorsed psoriasis all over his body. He denied any joint pain, active bleeding: melena, hematemesis, chest pain, shortness of breath, fever or chills, abdominal pain, vomiting or any other complaints. He denied any previous history of cancer, chemotherapeutic drugs, organ transplant or any other risk factors for TTP. On admission he had low platelets, hypokalemia which was repleted. Sodium was low could be chronic. He had no signs symptoms of sepsis. Past medical history: Chronic liver disease, psoriasis Past surgical history: Appendectomy 4 years ago, knee surgery 30 years ago. Family history: Noncontributory Social history: Smoking 10 pack years active smoking, heavy alcohol use, occasionally, last drink was 10 glasses at a [facility] 1 week ago. Home medicines: Vitamins Allergies: No known allergies The patient was seen and examined at bedside today. Patient reports having arms and legs pain while moving in the bed, he denies any other new complaints. His dizziness and confusion improved. He is alert and oriented to time, place and person. Objective vital signs Vital Sign Date Time Temp Pulse Resp B/P (MAP) Pulse Ox O2 Delivery O2 Flow Rate FiO2 01/24/25 16:55 99.1 98 20 123/79 (94) 99 99.1 01/24/25 08:00 Room Air* 0 21 Total Intake and Output 01/23/25 01/23/25 01/24/25 15:00 23:00 07:00 Intake Total 1060 ml 1170 ml Balance 1060 ml 1170 ml medications Current Medications Medications Dose Ordered Sig/Juhi Route Start Time Stop Time Status Last Admin Dose Admin Ondansetron HCl 4 mg Q4HP PRN IV 01/23/25 16:00 Thiamine HCl 100 mg DAILY PO 01/24/25 10:00 01/24/25 08:28 100 MG Folic Acid 1 mg DAILY PO 01/24/25 10:00 01/24/25 08:28 1 MG Lorazepam 1 mg Q2HPRN PRN IV 01/23/25 16:00 01/24/25 14:28 1 MG Chlordiazepoxide HCl 25 mg Q6HPRN PRN PO 01/23/25 16:00 01/24/25 08:27 25 MG Lactulose 30 ml BID PO 01/23/25 22:00 01/24/25 08:28 30 ML Ceftriaxone Sodium 50 ml @ 100 mls/hr DAILY@09 IV 01/24/25 09:00 01/24/25 08:27 100 MLS/HR Prednisone 40 mg DAILY PO 01/25/25 10:00 Examination Exam Pt is lying on bed General Appearance: Alert, Oriented X3, Cooperative, Not in acute distress HEENT: Atraumatic, Mucous membranes moist/pink, yellow conjunctivas Respiratory: Clear to auscultation, Normal air movement, No added sounds Cardiovascular: Regular rate, Normal S1, Normal S2, No murmurs Abdominal: Active bowel sounds, Soft, no distention, no tenderness Extremities: No edema, Normal pulses, No tenderness/swelling Skin: Psoriasis on scalp, extremities. Psych/Mental Status: Mental status NL, Mood NL Nurse was there as field marketing director during examination laboratory and microbiology Laboratory Tests 01/24/25 05:33 Test 01/24/25 05:33 Range/Units Serum Glucose 64 L 74-106 mg/dL Microbiology Date/Time Source Procedure Growth Status 01/23/25 19:40 Nose MRSA Screen - Final Complete Labs and/or images reviewed: Labs reviewed by me, Image(s) reviewed by me Problem List/Assessment/Plan Problem List/Assessment/Plan Alcohol withdrawal Alcohol abuse Blood alcohol level 180s Counseling regarding cessation for more than 40 minutes Social service consult for providing resources to quit alcohol IV fluids Ondansetron for nausea CIWA score 5 CIWA protocol: Lorazepam, thiamine, folic acid vitamin B12 given Alcoholic liver disease with hyperbilirubinemia Transaminitis Thrombocytopenia, likely alcohol-induced Monitor labs and signs symptoms of active bleeding High LDH Maddrey score 33, prednisone 40 mg p.o. started today on 01/24/2025 CT abdomen and pelvis:Throughout liver with interval hypodense lesions, which may represent masses or fatty infiltration. Liver MRI with and without IV contrast can better evaluate.Recanalized umbilical vein. Colonic diverticulosis.Left lower lobe infection. Pneumonia, due to Gram-positive or negative organism, (left lower lobe infection on CT scan) Ceftriaxone IV Constipation Colonic diverticulosis High-fiber diet and monitor for active bleeding MiraLax Psoriasis Wound consult done Follow up outpatient with Dermatology GI prophylaxis: Pantoprazole DVT prophylaxis: Lovenox on hold given thrombocytopenia Diet: Clear liquid, advance as tolerated Goals of care discussed with the patient for more than 27 minutes: Full code status Plan discussed with: Patient, Other (RN) My Orders My Orders Orders - KATHI FAUSTIN Procedure Category Date Status Time Regular Diet DIET 01/24/25 Transmitted Breakfast Date of Service: Jan 24, 2025 Billing Provider: VERO THOMAS MD Common Visit Codes: [id number] INP/OBS CARE(HIGH) KATHI FAUSTIN RESIDENT Jan 24, 2025 19:10 VERO THOMAS MD Jan 27, 2025 20:55
[2025-01-25 01:00] VITALS: BP 119/76; PULSE 104; RESP 18; TEMP 98.2; O2SAT 95
[2025-01-25 05:00] VITALS: BP 111/70; PULSE 98; RESP 16; TEMP 97.9; O2SAT 96
[2025-01-25 05:57] LABS: Hemoglobin 12.1 g/dL (13.5-17.5)
[2025-01-25 05:59] LABS: Anion Gap 12 (5-15); Carbon Dioxide 24 mmol/L (20-31); Chloride 99 mmol/L (98-107); Potassium 3.6 mmol/L (3.5-5.1)
[2025-01-25 06:01] LABS: Hematocrit 34.4 % (41.0-53.0); Mean Corpuscular Hemoglobin 36.8 pg (28.0-32.0); Mean Corpuscular Volume 105.0 fL (80.0-100.0); Nucleated Red Blood Cells % 0.3 %
[2025-01-25 06:10] LABS: BUN/Creatinine Ratio 8.0 (10.0-20.0)
[2025-01-25 06:14] LABS: Blood Urea Nitrogen 7 mg/dL (9-23); Calcium 8.3 mg/dL (8.7-10.4); Glucose 107 mg/dL (74-106); Sodium 135 mmol/L (136-145)
[2025-01-25 08:00] VITALS: PULSE 104; PULSE 91; PULSE 97; O2SAT 96
[2025-01-25] MEDS: predniSONE 20 MG TAB PO SCH (08:53)
[2025-01-25 09:00] VITALS: BP 128/78; PULSE 91; RESP 21; TEMP 98.7; O2SAT 95
--- NOTE | 2025-01-25 09:45 | DVH ---
INDICATION: Chronic alcoholic liver disease TECHNIQUE: Multiple real-time sonographic images were obtained of the right upper quadrant. COMPARISON: US KIDNEY on DOS: 07/02/23, US GALLBLADDER on DOS: 09/06/22 FINDINGS: The liver demonstrates heterogeneous echotexture without focal mass lesions. Hepatic cirrho sis. The liver measures 17.6 cm. There is no intrahepatic or extrahepatic ductal dilatation. Common bile duct not visualized. Gallbladder sludge The gallbladder wall measures 0.7mm and is thickened. The right kidney measures 11 cm. The right kidney is normal in contour, size, and shape. The echog enicity is normal. There is no hydronephrosis. The pancreas is not well visualized due to overlying bowel gas. IMPRESSION: Gallbladder sludge with thickening of the gallbladder wall. Hepatic cirrhosis. Recanalized umbilical vein. Small volume ascites. Trace right pleural effusion
[2025-01-25 09:57] LABS: Alanine Aminotransferase 63.0 U/L (7-40); Albumin 2.9 g/dL (3.2-4.8); Alkaline Phosphatase 353.0 U/L (46-116); Bilirubin, Direct 10.1 mg/dL (<0.3); Bilirubin, Total 14.4 mg/dL (0.2-1.0)
[2025-01-25 09:59] LABS: Total Protein 7.1 g/dL (5.7-8.2)
[2025-01-25] MEDS ORDERED: TRIAMCINOLONE ACET 0.1% TOPICAL CREAM 15GM TOP ONE (10:45)
[2025-01-25] MEDS ORDERED: TRIAMCINOLONE ACET 0.1% TOPICAL CREAM 15GM TOP SCH (11:30)
[2025-01-25 13:00] VITALS: BP 119/78; PULSE 109; RESP 23; TEMP 98.1; O2SAT 96
[2025-01-25] MEDS ORDERED: PRED20TA2 PO (13:39)
[2025-01-25] MEDS ORDERED: TRIA0.1O TOP (13:40)
--- NOTE | 2025-01-25 13:49 | DVHDSRES ---
Discharge Summary Date of Admission Resident Creating Document: KATHI FAUSTIN Jan 23, 2025 at 15:47 Date of Discharge: Jan 25, 2025 Admitting Diagnosis Alcohol withdrawal Labs/Diagnostic Data: Laboratory Results Test 01/25/25 08:13 01/25/25 05:07 01/23/25 19:12 01/23/25 16:01 White Blood Count 5.9 10^3/uL (4.4-10.8) Red Blood Count 3.28 10^6/uL (4.5-5.90) Hemoglobin 12.1 g/dL (13.5-17.5) Hematocrit 34.4 % (41.0-53.0) Mean Corpuscular Volume 105.0 fL (80.0-100.0) Mean Corpuscular Hemoglobin 36.8 pg (28.0-32.0) Mean Corpuscular Hemoglobin Concent 35.0 g/dL (32.0-36.0) Red Cell Distribution Width 16.1 % (11.8-14.3) Platelet Count 34 10^3/uL (140-450) Mean Platelet Volume 7.9 fL (6.9-10.8) Neutrophils (%) (Auto) 76.6 % (37.0-80.0) Lymphocytes (%) (Auto) 13.3 % (10.0-50.0) Monocytes (%) (Auto) 9.7 % (0.0-12.0) Eosinophils (%) (Auto) 0.1 % (0.0-7.0) Basophils (%) (Auto) 0.3 % (0.0-2.0) Neutrophils # (Auto) 4.6 10 ^3/uL (1.6-8.6) Lymphocytes # (Auto) 0.8 10 ^3/uL (0.4-5.4) Monocytes # (Auto) 0.6 10 ^3/uL (0-1.3) Eosinophils # (Auto) 0 10 ^3/uL (0-0.8) Basophils # (Auto) 0 10 ^3/uL (0-0.2) Nucleated Red Blood Cells 0.3 % Sodium Level 135 mmol/L (136-145) Potassium Level 3.6 mmol/L (3.5-5.1) Chloride Level 99 mmol/L (98-107) Carbon Dioxide Level 24 mmol/L (20-31) Anion Gap 12 (5-15) Blood Urea Nitrogen 7 mg/dL (9-23) Creatinine 0.88 mg/dL (0.700-1.30) Glomerular Filtration Rate Calc 103 mL/min (>90) BUN/Creatinine Ratio 8.0 (10.0-20.0) Serum Glucose 107 mg/dL (74-106) Calcium Level 8.3 mg/dL (8.7-10.4) Total Bilirubin 14.4 mg/dL (0.2-1.0) Direct Bilirubin 10.1 mg/dL (<0.3) Aspartate Amino Transferase (AST) 263 U/L (13-40) Alanine Aminotransferase (ALT) 63 U/L (7-40) Alkaline Phosphatase 353 U/L (46-116) Total Protein 7.1 g/dL (5.7-8.2) Albumin 2.9 g/dL (3.2-4.8) Lactic Acid Level 3.1 mmol/L (0.4-2.0) Magnesium Level 1.8 mg/dL (1.6-2.6) Test 01/23/25 14:54 01/23/25 14:35 01/23/25 12:35 01/23/25 11:54 Troponin I High Sensitivity 10 ng/L (</=54) Ammonia 54 umol/L (11-32) Lactate Dehydrogenase 412 U/L (120-246) Plasma/Serum Blood Alcohol 188.0 mg/dL (<10) Urine Color Dark-orange (Yellow) Urine Clarity Turbid (Clear) Urine pH 6.0 (5.0-9.0) Urine Specific [place] 1.031 (1.001-1.035) Urine Protein 2+ (Negative) Urine Ketones Trace (Negative) Urine Blood 1+ /uL (Negative) Urine Nitrite Negative (Negative) Urine Bilirubin Positive (Negative) Urine Urobilinogen 12 mg/dL (Negative) Urine Leukocyte Esterase Negative /uL (Negative) Urine RBC 4 /hpf (0 - 3) Urine Microscopic WBC 4 /HPF (0-3) Urine Squamous Epithelial Cells Few /hpf (<5) Urine Bacteria Few /hpf (None Seen) Urine Mucus Few (None Seen) Urine Glucose Trace mg/dL (Normal) Urine Opiates Screen Neg (NEGATIVE) Urine Fentanyl Screen Neg (NEGATIVE) Urine Barbiturates Screen Neg (NEGATIVE) Urine Phencyclidine Screen Neg (NEGATIVE) Urine Amphetamines Screen Pos (NEGATIVE) Urine Benzodiazepines Screen Neg (NEGATIVE) Urine Cocaine Screen Neg (NEGATIVE) Urine Cannabinoids Screen Neg (NEGATIVE) Prothrombin Time 15.0 sec (9.3-11.8) Prothrombin Time INR 1.47 (0.9-1.15) Other Laboratory Tests 01/25/25 05:07 Brief Hx & Hospital Course: HPI: Mr. Cleaning, a 54-year-old male with previous history of chronic liver disease with ascites, status post paracentesis, 1 and half year ago at [place], psoriasis noncompliant with medicines, significant alcohol abuse presented to the ER with a friend due to altered mental status associated with nausea. He also has occasional dizziness, without losing any consciousness, confusion or blurry visions. The patient started having hallucinations of seeing through people, he believed all his symptoms started after going to the [employer] for a prayer ceremony. The patient endorsed psoriasis all over his body. He denied any joint pain, active bleeding: melena, hematemesis, chest pain, shortness of breath, fever or chills, abdominal pain, vomiting or any other complaints. He denied any previous history of cancer, chemotherapeutic drugs, organ transplant or any other risk factors for TTP. On admission he had low platelets, hypokalemia which was repleted. Sodium was low could be chronic. He had no signs symptoms of sepsis. Past medical history: Chronic liver disease, psoriasis Past surgical history: Appendectomy 4 year WAS IN 180S. s ago, knee surgery 30 years ago. Family history: Noncontributory Social history: Smoking 10 pack years active smoking, heavy alcohol use, occasionally, last drink was 10 glasses at a green party 1 week ago. Home medicines: Vitamins Allergies: No known allergies BRIEF HOSPITAL COURSE: On admission the patient was treated for alcohol withdrawal, the blood alcohol level initially was 180s, with CIWA score being 5. Patient was treated with IV fluids and CIWA protocol a noisy lorazepam, thiamine folic acid and vitamin B12 was given. CT abdomen and pelvis reveals hypodense lesion in the liver mass versus fatty infiltration. Liver ultrasound revealed cirrhosis. Maddrey score was 33, prednisone 40 mg was started based on that. He was monitored for active bleeding given his thrombocytopenia likely alcohol induced The patient was treated for possible lower lobe pneumonia based on CT with ceftriaxone IV. His CT scan also revealed colonic diverticulosis and patient was experiencing constipation. He was monitored for active GI bleeding and advice on high-fiber diet and MiraLax was given. The patient was treated with topical triamcinolone for psoriasis. On the day of discharge, patient was hemodynamically stable, alert, oriented to time, place and person, was tolerating diet. The patient was thoroughly explained the discharge plan, advised to follow up with DC clinic and PCP within 1 week. General Appearance: Alert, Oriented X3, Cooperative, Not in acute distress HEENT: Atraumatic, Mucous membranes moist/pink, yellow conjunctivas Respiratory: Clear to auscultation, Normal air movement, No added sounds Cardiovascular: Regular rate, Normal S1, Normal S2, No murmurs Abdominal: Active bowel sounds, Soft, no distention, no tenderness Extremities: No edema, Normal pulses, No tenderness/swelling Skin: Psoriasis on scalp, extremities. Psych/Mental Status: Mental status NL, Mood NL Nurse was there as desktop support engineer during examination Operations or Procedures PATIENT: ALESSIA MONTOYA ACCT: [id number] UNIT: [id number] : 1970 LOC: [facility] ROOM / BED: [facility] / A AGE / SEX: 54 / M ADM STATUS: ADM IN SERVICE 7 ORDERING PHYSICIAN: KATHI FAUSTIN RESIDENT PROCEDURE(s): LIVUS - LIVER REASON: Chronic alcoholic liver disease ORDER NUMBER(s): [id number], ACCESSION NUMBER(s): [id number] INDICATION: Chronic alcoholic liver disease TECHNIQUE: Multiple real-time sonographic images were obtained of the right upper quadrant. COMPARISON: US KIDNEY on DOS: 07/02/23, US GALLBLADDER on DOS: 09/06/22 FINDINGS: The liver demonstrates heterogeneous echotexture without focal mass lesions. Hepatic cirrhosis. The liver measures 17.6 cm. There is no intrahepatic or extrahepatic ductal dilatation. Common bile duct not visualized. Gallbladder sludge The gallbladder wall measures 0.7mm and is thickened. The right kidney measures 11 cm. The right kidney is normal in contour, size, and shape. The echogenicity is normal. There is no hydronephrosis. The pancreas is not well visualized due to overlying bowel gas. IMPRESSION: Gallbladder sludge with thickening of the gallbladder wall. Hepatic cirrhosis. Recanalized umbilical vein. Small volume ascites. Trace right pleural effusion ENT: ALESSIA MONTOYA ACCT: [id number] UNIT: [id number] : 1970 LOC: [facility] ROOM / BED: [address] [place] [address] / AGE / SEX: 54 / M ADM STATUS: ADM IN SERVICE 1550 ORDERING PHYSICIAN: KATHI FAUSTIN RESIDENT PROCEDURE(s): ABPL - CT AB PEL WO CON-NO ORAL OR IV REASON: Liver disease ORDER NUMBER(s): [id number], ACCESSION NUMBER(s): [id number] CLINICAL HISTORY: Liver disease TECHNIQUE: CT of the abdomen and pelvis was performed without IV contrast. This exam was performed according to our departmental dose optimization program. Up-to-date CT equipment and radiation dose reduction techniques are utilized as appropriate. CTDI 10 DLP 535 COMPARISON: CT CT AB PEL WO CON-NO ORAL OR IV on DOS: 07/02/23, CT CT AB PEL WO CON-NO ORAL OR IV on DOS: 09/05/22 FINDINGS: Abdomen/Pelvis: The spleen, pancreas, adrenal glands, kidneys, bladder, and prostate gland are grossly unremarkable. There is a moderate amount of sludge in the gallbladder. The liver is nodular in contour. There are diffuse hypodense lesions throughout the liver. There is a recanalized umbilical vein. The abdominal aorta is normal in course and caliber. There are no significant atherosclerotic calcifications. There is no free intraperitoneal air. Trace ascites. There is no enlarged abdominal pelvic lymph node. There is no bowel wall thickening or dilatation. The appendix is not seen, possibly surgically absent. There is mild left colon diverticulosis. Other: The imaged lower thorax demonstrates patchy left lower lobe opacities. No acute osseous abnormality is evident. Impression: Throughout liver with interval hypodense lesions, which may represent masses or fatty infiltration. Liver MRI with and without IV contrast can better evaluate. Recanalized umbilical vein. Colonic diverticulosis. Left lower lobe infection. ENT: ALESSIA MONTOYA ACCT: [id number] UNIT: [id number] : 1970 LOC: ER ROOM / BED: / AGE / SEX: 54 / M ADM STATUS: REG ER SERVICE ORDERING PHYSICIAN: GABRIEL RIVERA MD PROCEDURE(s): HWOCT - HEAD WITHOUT CONTRAST REASON: [facility] ORDER NUMBER(s): [id number], ACCESSION NUMBER(s): [id number] EXAM: CT HEAD WITHOUT CONTRAST HISTORY: ams COMPARISON: None TECHNIQUE: Noncontrast axial CT images of the head were performed. Sagittal and coronal reformatted images were obtained. This CT exam was performed using 1 or more of the following dose reduction techniques: Automated exposure control, adjustment of the mA and/or kv according to patient size, or the use of iterative reconstruction techniques. Radiation Dose: CTDI volume is 52.67 mGy. Dose-length product is 1.71 mGy*cm FINDINGS: No intracranial hemorrhage, mass, midline shift, hydrocephalus, or evidence of acute large vessel infarct. There is mucosal thickening throughout the paranasal sinuses with sparing of the left frontal sinus. The bilateral mastoid air cells and middle ear spaces are clear. No cranial fracture or scalp edema. IMPRESSION: 1. No acute intracranial process. 2. Pansinus disease sparing the left frontal sinus. PATIENT: ALESSIA MONTOYA ACCT: [id number] UNIT: [id number] : 1970 LOC: ER ROOM / BED: / AGE / SEX: 54 / M ADM STATUS: REG ER SERVICE 1136 ORDERING PHYSICIAN: GABRIEL RIVERA MD PROCEDURE(s): CXRP - CHEST PORTABLE REASON: [facility] ORDER NUMBER(s): [id number], ACCESSION NUMBER(s): [id number] CHEST RADIOGRAPH Indication: ams Technique: Single frontal view of the chest was obtained Comparison: None FINDINGS: Lines and Tubes: None Lungs: No focal consolidation. Pleura: No effusion. No pneumothorax. Cardiomediastinal contours: Unremarkable Bones: No acute osseous abnormality. IMPRESSION: 1. No acute cardiopulmonary disease. Condition at Discharge: Stable Final Diagnosis/Problems List Alcohol withdrawal Alcohol abuse Alcoholic liver disease with hyperbilirubinemia Transaminitis Thrombocytopenia, likely alcohol-induced Constipation Colonic diverticulosis Psoriasis Discharge Disposition: Home Discharge Instruct/Medications Diet: Consistent carbohydrate Activity: No Restrictions, As Tolerated Follow Up/Referral: fu with PCP in 2 weeks Medications: as per EMR Scheduled Prednisone (Prednisone), 40 MG PO DAILY Triamcinolone Acetonide (Triamcinolone Acetonide), 1 APPLIC TOP BID Discontinued Medications Acetaminophen (Tylenol 8 Hour Arthritis), 650 MG PO TID Acetaminophen (Acetaminophen), 500 MG PO TIDPRN PRN Ciprofloxacin Hcl (Ciprofloxacin Hcl), 1 TAB PO TID Metronidazole (Flagyl), 1 TAB PO TID Discharge Statement: "Patient was advised to return to the ER or call 911 if any headaches, dizziness, shortness of breath, chest pain, abdominal pain, bleeding, fevers, or worsening of medical condition. Patient was counseled about treatment plan, medications, possible side effects, patientverbalized understanding. All questions were answered to the best of my ability. This discharge took greater then 30 minutes in planning, reviewing documentation, counseling the patient, and discussing with other team members." ASSESSMENT ASSESSMENT Assessment Alcoholic liver disease Date of Service: Jan 25, 2025 Billing Provider: VERO THOMAS MD Common Visit Codes: 21852-WTU/OBS DISCH DAY >30min KATHI FAUSTIN RESIDENT Jan 25, 2025 13:49 VERO THOMAS MD Jan 27, 2025 20:55
[2025-01-25 14:19] VITALS: TEMP 36.7
[2025-01-26 11:40] LABS: Hepatitis B Surface Antigen Negative (Negative)
[2025-01-26 12:01] LABS: Hepatitis C Antibody Negative (Negative)
== END 2025-01-25 15:43 | disposition home or self-care (01) | DRG 280 ==
LOC: ER 10:27 → OVERFLOW 15:47 → TELE-EAST 17:50
PROVIDERS: ADMIT Internal Medicine Geriatric Medicine; ATTEND Internal Medicine Geriatric Medicine
DX: K70.9 Alcoholic liver disease, unspecified (principal); G93.41 Metabolic encephalopathy; J18.9 Pneumonia, unspecified organism; D69.6 Thrombocytopenia, unspecified; E80.6 Other disorders of bilirubin metabolism; L40.9 Psoriasis, unspecified; R74.01 Elevation of levels of liver transaminase levels; K57.30 Diverticulosis of large intestine without perforation or abscess without bleeding; K59.00 Constipation, unspecified; F10.139 Alcohol abuse with withdrawal, unspecified; Z79.899 Other long term (current) drug therapy; Y90.6 Blood alcohol level of 120-199 mg/100 ml
CPT/HCPCS: 36415; 70450; 71045; 74176; 76705; 80048; 80053; 80074; 80076; 80307; 80320; 81001; 82105; 82140; 83605; 83615; 83735; 84484; 85025; 85610; 87081; 93005; 99291; G0378